=== PATIENT | male | born 1945 | race Caucasian/White ===

== ENCOUNTER → 2024-01-05 09:34 | Day surgery (SDC) | payer MEDICARE, OTHER, SELFPAY | LOC: SDSPAT 09:34 | PROVIDERS: ATTENDING PHYSICIAN Surgery; FAMILY PHYSICIAN Family Medicine | DX: Z01.810 Encounter for preprocedural cardiovascular examination (principal) | CPT/HCPCS: 93005; 36415 ==

== ENCOUNTER 2024-01-09 06:43 | Day surgery (SDC) | payer MEDICARE, OTHER, SELFPAY ==
[2024-01-05 12:33] VITALS: BMI 27.6
[2024-01-09] VITALS (8 sets, daily range): BP systolic 120–163; BP diastolic 59–99; BMI 27.6
--- NOTE | 2024-01-09 12:22 | W.SUR.PREOP ---
Pre-Operative Surgical Note
-
I have examined this patient prior to the performance of the scheduled procedure.
The patient's condition is unchanged from the time of the current History and
Physical and the patient is able to undergo the scheduled procedure.
Preop yellow sheet signed on chart.
Surgical consent signed on chart.
Cysview instillation prior to OR.
To OR for blue light TURBT.
D/w patient.
D/w SDS RN.
[2024-01-09] MEDS: CYSVIEW KIT 100 MG INTRAVES (12:25)
== END 2024-01-09 15:45 | disposition home or self-care (01) ==
LOC: SDS 06:43
PROVIDERS: ATTENDING PHYSICIAN Surgery
DX: C67.5 Malignant neoplasm of bladder neck (principal); C67.2 Malignant neoplasm of lateral wall of bladder; N35.919 Unspecified urethral stricture, male, unspecified site
CPT/HCPCS: 52235; C9738; 88307; A9589; C1769

== ENCOUNTER → 2024-10-08 08:44 | Outpatient (REF) | payer MEDICARE, OTHER, SELFPAY | LOC: RAD 08:44 | PROVIDERS: ATTENDING PHYSICIAN Physician Assistant | DX: R68.84 Jaw pain (principal) | CPT/HCPCS: 70110 ==

== ENCOUNTER → 2024-10-11 12:48 | Outpatient (REF) | payer MEDICARE, OTHER, SELFPAY | LOC: HWRAD 12:48 | PROVIDERS: ATTENDING PHYSICIAN Physician Assistant; FAMILY PHYSICIAN Family Medicine | DX: R22.1 Localized swelling, mass and lump, neck (principal) | CPT/HCPCS: 76536 ==